=== PATIENT | female | born 1960 | race Caucasian/White ===

== ENCOUNTER 2021-04-03 15:01 | Outpatient (CLI) | payer BC | END 2021-04-03 15:02 | disposition home or self-care (01) | LOC: CSHMAMMO 15:01 | PROVIDERS: ATTEND Internal Medicine Hematology & Oncology | DX: Z12.31 Encounter for screening mammogram for malignant neoplasm of breast (principal); Z80.3 Family history of malignant neoplasm of breast; Z85.3 Personal history of malignant neoplasm of breast; Z98.890 Other specified postprocedural states | CPT/HCPCS: 77063; 77067 ==

== ENCOUNTER 2021-04-04 12:44 | Outpatient (CLI) | payer BC | END 2021-04-04 12:45 | disposition home or self-care (01) | LOC: CSHULT 12:44 | PROVIDERS: ATTEND Internal Medicine Hematology & Oncology | DX: N63.10 Unspecified lump in the right breast, unspecified quadrant (principal) ==

== ENCOUNTER 2022-04-05 09:08 | Outpatient (CLI) | payer BC | END 2022-04-05 09:09 | disposition home or self-care (01) | LOC: CSHMAMMO 09:08 | PROVIDERS: ATTEND Internal Medicine Hematology & Oncology | DX: Z12.31 Encounter for screening mammogram for malignant neoplasm of breast (principal); R92.1 Mammographic calcification found on diagnostic imaging of breast; Z85.3 Personal history of malignant neoplasm of breast; Z86.018 Personal history of other benign neoplasm; Z98.890 Other specified postprocedural states; Z80.3 Family history of malignant neoplasm of breast | CPT/HCPCS: 77063; 77067 ==

== ENCOUNTER 2023-04-07 14:49 | Outpatient (CLI) | payer BC | END 2023-04-07 14:50 | disposition home or self-care (01) | LOC: CSHMAMMO 14:49 | PROVIDERS: ATTEND Family Medicine | DX: Z12.31 Encounter for screening mammogram for malignant neoplasm of breast (principal); Z80.3 Family history of malignant neoplasm of breast; Z85.3 Personal history of malignant neoplasm of breast | CPT/HCPCS: 77063; 77067 ==